=== PATIENT | female | born 1965 | race Caucasian/White ===

== ENCOUNTER 2020-12-10 10:03 | Inpatient (IN) | payer MEDICAID, OTHER ==
[~2020-12-10] VITALS: Ht 160 cm; Wt 67.8 kg
[2020-12-10] MEDS ORDERED: DEXTROSE (50%) 50ML SYRG IV ONE ×2 (10:15→16:15)
[2020-12-10] MEDS ORDERED: SODIUM CHLORIDE 0.9% 1,000 ML IV ONE (10:15)
[2020-12-10] MEDS ORDERED: DEXTROSE 50% SYRINGE 150 ML IV ONE (10:22)
[2020-12-10 11:18] LABS: Hematocrit 28.4 % (36.0-46.0); Hemoglobin 8.6 g/dL (12.2-16.2); Mean Corpuscular Hemoglobin 34.8 pg (28.0-32.0); Mean Corpuscular Hgb Conc. 30.2 g/dL (32.0-36.0); Platelet Count (auto) 288 10^3/uL (140-450); Red Blood Cells 2.47 10^6/uL (4.0-5.20); White Blood Cell 14.4 10^3/uL (4.4-10.8)
[2020-12-10 11:27] LABS: Basophils % (manual) 0 (0.0-2.0); Blast Cells 0; Eosinophils % (manual) 0 (0-7); Promyelocytes % 0; Reactive Lymphocytes 0
[2020-12-10 11:29] LABS: Albumin 2.1 g/dL (3.4-5.0); Calcium 7.9 mg/dL (8.5-10.1); Potassium 4.8 mmol/L (3.5-5.1)
[2020-12-10 11:31] LABS: Lactic Acid w/Reflex 13.8 mmol/L (0.4-2.0)
[2020-12-10 11:46] LABS: Total Protein 5.2 g/dL (6.4-8.2)
[2020-12-10] MEDS ORDERED: PIPERACILLIN-TAZOB 3.375GM 100 ML IV ONE (12:00)
[2020-12-10] MEDS ORDERED: SODIUM CHLORIDE 0.9% 2,000 ML IV ONE (12:15)
[2020-12-10 13:15] LABS: Band Neutrophils % (manual) 3; Lymphocytes % (manual) 6 (10.0-50.0); Metamyelocytes % 1; Monocytes % (manual) 10 (0-12); Myelocytes % 1
[2020-12-10] MEDS ORDERED: LORazepam 2MG/ML-1ML VIAL IV ONE (13:15)
[2020-12-10] MEDS ORDERED: SODIUM BICARBONATE 50ML VIAL 50 ML in SOD CHL 0.45% 1,000 ML IV SCH (13:30)
[2020-12-10] MEDS ORDERED: SODIUM BICARBONATE 50ML VIAL 50 ML in D5W/SOD CHL 0.45% 1,000 ML IV SCH ×2 (13:30→16:30)
[2020-12-10] MEDS ORDERED: SODIUM CHLORIDE 0.9% 2,050 ML IV ONE (13:30)
[2020-12-10] MEDS ORDERED: POTA-264 (13:41)
[2020-12-10] MEDS ORDERED: FOLI1TAB6 PO (13:41)
[2020-12-10] MEDS ORDERED: MET500T PO (13:41)
[2020-12-10] MEDS ORDERED: FURO40TA4 PO (13:41)
[2020-12-10] MEDS ORDERED: NICO21DI37 TOP (13:41)
[2020-12-10] MEDS ORDERED: PANT40T PO (13:41)
[2020-12-10] MEDS ORDERED: LEVO-28 PO (13:41)
[2020-12-10] MEDS ORDERED: THIA100T46 PO (13:41)
[2020-12-10] MEDS ORDERED: CLINDAMYCIN 900MG IV 50 ML IV ONE (13:45)
[2020-12-10 14:26] LABS: Amylase 134 U/L (25-115); Lipase 425 U/L (73-393)
[2020-12-10 14:27] LABS: INR 1.72 (0.9-1.15)
[2020-12-10] MEDS ORDERED: MORPHINE SULF INJ 2 MG/ML SYRINGE 1ML IV PRN (14:45)
[2020-12-10] MEDS ORDERED: NITROGLYCERIN 0.4 MG SL TAB SL PRN (14:45)
[2020-12-10] MEDS ORDERED: ALBUTEROL SULF HFA 90MCG INH 200DOSE IN PRN (15:00)
[2020-12-10] MEDS ORDERED: phytonadione 10 MG in SODIUM CHL 0.9% 50 ML IV ONE (15:00)
[2020-12-10] MEDS ORDERED: PANTOPRAZOLE 40 MG/10 ML VIAL INJ IV ONE (15:00)
[2020-12-10 15:13] LABS: CRP High Sensitivity 4.51 mg/dL (< 0.3)
[2020-12-10 15:40] VITALS: BP 109/89
[2020-12-10] MEDS ORDERED: DEXTROSE 50% SYRINGE 100 ML IV ONE (16:00)
[2020-12-10] MEDS: SODIUM BICARBONATE 50ML VIAL 150 ML in D5W 5% 1,000 ML IV SCH (16:54)
[2020-12-10] MEDS: DEXTROSE (50%) 50ML SYRG IV PRN (16:55)
[2020-12-10] MEDS: ACCU-CHEK COMFORT CURVE STRIP VI SCH ×2 (20:00→22:00)
[2020-12-10 21:50] LABS: Hematocrit 26.9 % (36.0-46.0); Hemoglobin 8.1 g/dL (12.2-16.2)
[2020-12-10] MEDS ORDERED: BUDESONIDE (INHALATION) 180 MCG IH IN SCH (22:00)
[2020-12-10] MEDS ORDERED: PANTOPRAZOLE 40 MG/10 ML VIAL INJ IV SCH (22:00)
[2020-12-10] MEDS ORDERED: ETOMIDATE (2MG/ML) 20ML VIAL IV ONE ×2 (22:18→22:30)
[2020-12-10] MEDS ORDERED: SUCCINYLCHOLINE CHLORIDE 20 MG/ML 10ML VIAL IV ONE ×2 (22:19→22:30)
[2020-12-10] MEDS ORDERED: EPINEPHrine HCL 1 MG/10 ML SYRG ONE (22:25)
[2020-12-10] MEDS ORDERED: SODIUM BICARBONATE 8.4% INJ 50ML SYRINGE ONE (22:25)
[2020-12-10 22:30] VITALS: BP 117/81
[2020-12-10] MEDS: MIDAZOLAM DRIP 50 mg/50mL 50 ML IV SCH ×2 (22:37→23:37)
[2020-12-10] MEDS: NOREPINEPHRINE 8 MG/250ML KIT 250 ML IV SCH (23:15)
[2020-12-11] MEDS: ACCU-CHEK COMFORT CURVE STRIP VI SCH ×3 (00:11→04:18)
[2020-12-11] MEDS ORDERED: EPINEPHrine HCL 250 ML IV ONE (00:20)
[2020-12-11] MEDS ORDERED: EPINEPHrine HCL 250 ML IV SCH (00:30)
[2020-12-11] MEDS: NOREPINEPHRINE 8 MG/250ML KIT 250 ML IV SCH (01:32)
[2020-12-11 01:39] VITALS: BP 140/73
[2020-12-11 02:16] LABS: Hemoglobin 7.2 g/dL (12.2-16.2)
[2020-12-11 02:18] LABS: Hematocrit 24.4 % (36.0-46.0)
[2020-12-11] MEDS: SODIUM BICARBONATE 50ML VIAL 150 ML in D5W 5% 1,000 ML IV SCH (04:00)
[2020-12-11] MEDS ORDERED: VASOPRESSIN 50 UNITS in D5W 5% 247.5 ML IV SCH (04:15)
[2020-12-11] MEDS ORDERED: VASOPRESSIN 20 UNIT/ML ONE (04:26)
[2020-12-11 05:10] VITALS: BP 132/56
[2020-12-11] MEDS ORDERED: IVERMECTIN 3 MG TAB PO ONE (07:00)
[2020-12-11] MEDS ORDERED: SODIUM BICARBONATE 8.4% INJ 50ML SYRINGE IV ONE ×2 (09:50→13:57)
[2020-12-11] MEDS ORDERED: EPINEPHrine HCL 1 MG/10 ML SYRG IV ONE ×2 (09:50→13:57)
[2020-12-11] MEDS ORDERED: PANTOPRAZOLE 40 MG/10 ML VIAL INJ IV SCH (10:00)
[2020-12-11] MEDS ORDERED: CHOLECALCIFEROL (VITD3) 2,000 UNIT CAP/TAB PO SCH (10:00)
[2020-12-11] MEDS ORDERED: ZINC SULFATE 220mg CAP or TAB PO SCH (10:00)
[2020-12-11] MEDS ORDERED: ASCORBIC ACID 1,000 MG TAB PO SCH (10:00)
[2020-12-14 13:17] LABS: Hepatitis B Surface Antibody Positive
[2020-12-14 13:53] LABS: Hepatitis A Total Antibody Positive
[2020-12-14 14:11] LABS: Hepatitis B Core Total AB Positive; Hepatitis B Surface Antigen Negative (Negative); Hepatitis C Antibody Negative (Negative)
== END 2020-12-11 05:15 | DRG 720 ==
LOC: EDBD 10:03 → ER 10:03 → OVERFLOW 10:04 → ER 11:27 → OVERFLOW 12-11 09:29
PROVIDERS: ADMIT Internal Medicine; ATTEND Internal Medicine
PROC: 5A1935Z Respiratory Ventilation, Less than 24 Consecutive Hours (ICD-10-PCS; principal; 2020-12-10)
PROC: 0BH17EZ Insertion of Endotracheal Airway into Trachea, Via Natural or Artificial Opening (ICD-10-PCS; 2020-12-10)
PROC: 5A12012 Performance of Cardiac Output, Single, Manual (ICD-10-PCS; 2020-12-10)
PROC: 06HY33Z Insertion of Infusion Device into Lower Vein, Percutaneous Approach (ICD-10-PCS; 2020-12-10)
PROC: 5A12012 Performance of Cardiac Output, Single, Manual (ICD-10-PCS; 2020-12-11)
DX: A41.9 Sepsis, unspecified organism (principal); U07.1 COVID-19; E43 Unspecified severe protein-calorie malnutrition; I21.A1 Myocardial infarction type 2; I46.9 Cardiac arrest, cause unspecified; I50.21 Acute systolic (congestive) heart failure; N17.9 Acute kidney failure, unspecified; J12.82 Pneumonia due to coronavirus disease 2019; K85.90 Acute pancreatitis without necrosis or infection, unspecified; D68.9 Coagulation defect, unspecified; K72.90 Hepatic failure, unspecified without coma; E16.2 Hypoglycemia, unspecified; N18.9 Chronic kidney disease, unspecified; D64.9 Anemia, unspecified; F15.10 Other stimulant abuse, uncomplicated; Z79.899 Other long term (current) drug therapy
CPT/HCPCS: 36415; 36600; 71045; 74176; 76700; 80053; 82140; 82150; 82550; 82805; 82962; 83036; 83605; 83690; 83880; 84443; 84484; 84702; 85007; 85014; 85018; 85027; 85045; 85610; 85652; 86141; 86704; 86706; 86708; 86803; 87040; 87070; 87205; 87340; 87426; 92950; 93005; 93970; 94002; C9113; G0378; J0171; J0330; J2250; J2543; J3430; J3490; J7060